=== PATIENT | male | born 1940 | race Caucasian/White ===

== ENCOUNTER 2017-05-16 01:30 | Outpatient (CLI) | payer MEDICARE, BC | END 2017-05-16 01:31 | disposition home or self-care (01) | LOC: BICCT 01:30 | PROVIDERS: ATTEND Psychiatry & Neurology Neurology | DX: R26.9 Unspecified abnormalities of gait and mobility (principal); M47.816 Spondylosis without myelopathy or radiculopathy, lumbar region; G93.89 Other specified disorders of brain | CPT/HCPCS: 70450; 72131 ==

== ENCOUNTER 2018-01-11 17:14 | Inpatient (IN) | payer MEDICARE, BC ==
[~2018-01-11 17:14] MED LIST: ISOVUE-370 76%-LOCM 1 ML ONE
[2018-01-11 17:38] LABS: Hemoglobin 13.4 g/dL (14.0-18.0); Mean Corpuscular Hemoglobin 31.6 pg (27.0-31.0); Platelet Count 231 thou/uL (130-400); Red Blood Cell (RBC) Count 4.23 mill/uL (4.70-6.10); White Blood Cell (WBC) Count 21.6 thou/uL (4.8-10.8)
[2018-01-11 17:45] LABS: Prothrombin Time 13.9 SEC (12.0-14.7)
[2018-01-11 17:46] LABS: INR-International Normal Ratio 1.1; PTT 70.5 SEC (22.9-36.1)
[2018-01-11 17:48] LABS: Calcium 9.6 mg/dL (7.8-10.44)
[2018-01-11 17:50] LABS: Acetaminophen Less than 6.0 mcg/mL (10.0-30.0); Alcohol Less than 10 mg/dL (Less than 10); Salicylate Less than 8.0 mg/dL (15.0-30.0)
[2018-01-11 17:51] LABS: Band 17 % (5-11); Eosinophils 1 % (0-10); Lymphocytes 4 % (21-51); MDiff Complete? YES; Monocytes 4 % (0-10); Neutrophil 74 % (42-75); PLT Morphology Comment Appears Adequate; RBC Morphology Normal
[2018-01-11 17:54] LABS: CKMB 3.9 ng/mL (0-6.6); Troponin I Less than 0.010 ng/mL (< 0.028)
[2018-01-11] MEDS ORDERED: Ondansetron HCl/PF 4 MG/2 ML Vial ONE (17:55)
[2018-01-11] MEDS ORDERED: Sodium Bicarb 50 MEQ/50 ML Abboject 8.4% SYRINGE ONE (18:07)
[2018-01-11] MEDS ORDERED: Dextrose 50% Abboject 50 ML SYRINGE ONE (18:07)
[2018-01-11] MEDS ORDERED: Insulin Regular 300 UNITS/3 ML VIAL ONE (18:07)
[2018-01-11] MEDS ORDERED: Calcium Chloride 1 GM/10 ML Abboject SYRINGE ONE (18:07)
[2018-01-11] MEDS ORDERED: Albuterol Sulfate 2.5 mg/3 ml Neb ONE (18:14)
[2018-01-11 18:30] LABS: Base Excess-Venous -5.1 mmol/L (0 (+/- 2.5)); Bicarbonate (HCO3v) 19.7 mmol/L (1.0-85.0); CO2 Tension (PvCO2) 34.9 mmHg (41.0-51.0); Calcium, Ionized 1.07 mmol/L (1.12-1.32); Hemoglobin - Calc 11.2 g/dL (12.0-18.0); O2 Tension (PvO2) 43.2 mmHg (35.0-45.0); T. Carbon Dioxide 20.8 mmol/L (1.0-85.0); pH (Venous) 7.359 (7.35-7.45); vO2 Saturation-calc 77.4 % (94-98)
--- NOTE | 2018-01-11 18:32 | CT ---
CT BRAIN 01/11/18 HISTORY: Stroke alert. Slurred speech. Fall. Vomiting. Noncontrast enhanced CT images of the brain is obtained from base of the skull through the vertex. Br ain and bone windows obtained. CT images demonstrate a previous right sided pterional craniotomy with a right MCA aneurysm clip in p vy. The patient has had previous old right posterior frontal area of encephalomalacia compatible with rig ht MCA distribution area of infarction. No evidence of acute intracranial masses, hemorrhages, or strokes seen. IMPRESSION: Old areas of stroke with encephalomalacic changes seen. Findings called to Dr. Pascual at 5:26 p.m. on 01/11/18. Code CR POS: [facility]
[2018-01-11 18:43] LABS: Anion Gap 14 mmol/L (10-20); Calc. Creatinine Clearance 0 mL/min (70-130); Carbon Dioxide 25 mmol/L (23-31); Chloride 96 mmol/L (98-107); Estimated GFR-MDRD 42; Potassium 4.1 mmol/L (3.5-5.1); Sodium 131 mmol/L (136-145)
[2018-01-11 18:44] LABS: Bilirubin, Total 0.3 mg/dL (0.2-1.2); Glucose 139 mg/dL (83-110)
[2018-01-11 18:45] LABS: Albumin 4.5 g/dL (3.4-4.8); Globulin 3.5 g/dL (2.4-3.5)
[2018-01-11 18:46] LABS: ALT (SGPT) 18 U/L (8-55); AST (SGOT) 22 U/L (5-34); Alkaline Phosphatase 83 U/L (40-150); BUN (Urea Nitrogen) 24 mg/dL (8.4-25.7); Lipase 39 U/L (8-78)
[2018-01-11 19:09] LABS: Bilirubin Negative (Negative); Blood, Urine Small (Negative); Clarity CLEAR (Clear); Glucose, Urine (Dipstick) Negative (Negative); Leukocyte Negative (Negative); Nitrite Negative (Negative); Protein, Urine (Dipstick) 100 mg/dL (Neg-Trace); Specific Gravity, Urine 1.024 (1.002-1.036); Urobilinogen 0.2 mg/dL (0.2-1.0); pH, Urine 6.5 (5.0-9.0)
[2018-01-11 19:12] LABS: Bacteria/HPF None Seen HPF (None Seen); Hyaline Casts/LPF 0-3 HYALINE CAST LPF (0-3 Hyaline); Pathc Cast-AUWi Flag 0.14 (0-2.49); Squamous Epithelial None Seen HPF (0-3); WBC/HPF None Seen HPF (0-3)
[2018-01-11 19:19] LABS: Amphetamine Not Detected (NotDetected); Barbiturates Screen Not Detected (NotDetected); Benzodiazepine Screen Detected (NotDetected); Cocaine Metabolite Screen Not Detected (NotDetected); Medtox Control Line Valid? VALID (VALID); Medtox Reader # READER 1; Methadone Not Detected (NotDetected); Methamphetamine Not Detected (NotDetected); Opiate Screen Not Detected (NotDetected); Oxycodone Screen Not Detected (NotDetected); Phencyclidine (PCP) Not Detected (NotDetected); THC/Cannabinoid Screen Detected (NotDetected); Tricyclic Screen Not Detected (NotDetected)
--- NOTE | 2018-01-11 19:40 | CT ---
CTA CAROTID ARTERIES: 01/11/18 HISTORY: Stroke. History of fall. Slurred speech. Contrast enhanced CTA of the carotid and intracranial arteries obtained using a 3D workstation. 2D an d 3D reconstructed images performed. Images demonstrate some calcification seen in the aortic arch. The right brachiocephalic artery is ec tatic. The right common carotid artery is patent. Atherosclerotic plaque seen in the distal aspect of the right CCA extending to the right ICA resulting in approximately 20% distal right CCA and proxima l right ICA stenosis. More distally, the right ICA is patent. there are areas of calcified plaque in the right M1 segment of the middle cerebral artery proximal to the area of aneurysmal clipping. Flow is seen into the M2 and M3 segments of the right MCA. The right and left anterior cerebral arteries are patent. LEFT CAROTID: The left common carotid artery is patent. Atherosclerotic seen in the distal left CCA extending to th e left ICA resulting in some moderate proximal left ICA stenosis. More distally, the left ICA is chávez nt. The left MCA is also patent. There is occlusion of the distal left vertebral artery. The right vertebral artery is patent. Flow is seen in the basilar artery which does provide flow to the right and left posterior cerebral vessels. IMPRESSION: 1. No evidence of definite acute intracranial occlusion seen. 2. There is occlusion of the mid to distal left vertebral artery. The edge of this is indetermin ate. 3. Surgical changes in the right MCA vessels with atherosclerotic plaques in the proximal right MCA artery. POS: [facility]
--- NOTE | 2018-01-11 20:52 | RAD ---
ONE VIEW CHEST: 01/11/18 HISTORY: Altered mental status. Fall. AP view chest is obtained on 01/11/18. Comparison made to previous exam from 06/17/14. AP view chest demonstrates some cardiomegaly. Ectasia of the aorta is seen. There is some elevation of the right hemidiaphragm. There appears to be some gas beneath the right hemidiaphragm. This may represent a portion of the hep atic flexure in this region; however, free air beneath the right hemidiaphragm cannot be completely e xcluded. Correlate with clinical exam. Bilateral shoulder degenerative changes seen. IMPRESSION: Area of gas density beneath the right hemidiaphragm. This may represent gas within the colonic flexur e versus may represent free air or rupture of the hollow viscus. POS: [facility]
[2018-01-11] MEDS ORDERED: Aspirin 300 MG Suppository ONE (21:10)
[2018-01-11] MEDS ORDERED: Ondansetron HCl/PF 4 MG/2 ML Vial IVP PRN (22:09)
[2018-01-11] MEDS ORDERED: Acetaminophen 325 MG TAB PO PRN (22:09)
[2018-01-11] MEDS ORDERED: Ondansetron ODT 4 MG TAB SL PRN (22:09)
[2018-01-12] MEDS ORDERED: hydrALAZINE 20 MG/ML VIAL SLOW IVP PRN (00:59)
[2018-01-12] MEDS ORDERED: Potassium Chloride 10 MEQ/100 ML PREMIX BAG IVPB SCH (01:30)
[2018-01-12] MEDS ORDERED: Piperacillin/Tazobactam 3.375 GM in Sodium Chloride 0.9% 100 ML IVPB SCH (01:30)
[2018-01-12 01:32] VITALS: BMI 30.2
--- NOTE | 2018-01-12 02:15 | HP ---
CHIEF COMPLAINT: Weak and dizzy. HISTORY OF PRESENT ILLNESS: This is a 77-year-old male with past medical history of hemophilia B, hy perlipidemia, hypertension, presenting with a new onset of right-sided weakness and facial droop. Hi story was obtained from patient and patient's family. The patient's was at work and she came ho me around 1630 hours and when she came home, she found the patient on the floor and when I spoke to t he patient, per the patient, he was on the floor for about 2 hours prior to the coming in to the house. At that time, noted the patient has slurred speech and right-sided weakness which is ne w. Therefore, patient called EMS. Per the , the patient does not have these symptoms of slurred speech and weakness. In patient's baseline, patient is able to communicate, and patient is able to do activities of daily living by himself. Per the , the patient did not have any fevers, nausea, and vomiting that was noted at that time. REVIEW OF SYSTEMS: Positive for right-sided weakness and drooping of the face, otherwise as document ed in the HPI, all other systems were reviewed and were negative. PAST MEDICAL HISTORY: The patient has hemophilia B, hyperlipidemia, hypertension. 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 The mali ent also had an aneurysm clip on right cerebral artery. Patient also had a foot surgery in the past. FAMILY HISTORY: Reviewed and noncontributory towards this visit. PSYCHIATRIC HISTORY: No previous psychiatric history. SOCIAL HISTORY: Patient drinks every day, less than 5 drinks per day. Patient actually is a former tobacco user and smokes cigarettes. Patient also drinks a glass of wine nightly. Patient does not u se any illicit drugs. ALLERGIES: No known drug allergies. CURRENT MEDICATIONS: The patient is on carbamazepine, Cardura, hydrochlorothiazide, lisinopril. PHYSICAL EXAMINATION: VITAL SIGNS: Blood pressure 185/86, pulse 65, respiratory rate of 14, temperature of 97.9, O2 sat of 96. IMAGING: EKG showed junctional rhythm, prolonged QT. CTA showed occlusion of mild distal left verte bral artery. ED COURSE: The patient was given aspirin, normal saline, sodium bicarbonate IV, Novolin R, dextrose 50%, albuterol sulfate, Zofran. LABORATORY DATA: WBC 21.6, hemoglobin 13.4, hematocrit 39.3, platelet count is 231,000. PT 13.9, IN R 1.1, PTT 70.5. ABGs, pH 7.3, pCO2 is 34.9, pO2 is 43.2. Sodium 131, potassium 3.0, chloride of 96 , anion gap of 14, creatinine 1.62, BUN 24, glucose 139, calcium 9.6. Urinalysis negative for trace leukoesterase, negative for nitrites. Toxicology: Salicylate is less than 8.0, acetaminophen less t miller 6.0, benzodiazepines detected, cannabinoids also detected. ASSESSMENT AND PLAN: 1. This is a 77-year-old male being admitted for left-sided weakness and facial droop, likely due to stroke. At this point, a CTA of the neck shows that there is some vertebral artery occlusion ordere d for MRI of the head. We will follow up with this. We have consulted Neurology. We started the pa grzegorz on aspirin, atorvastatin. We will give the patient IV hydration and we will re-examine the pat ient's creatinine in the morning. If the patient's creatinine starts to resolve, we can do MRA of th e head. 2. Hypertension. We will give patient's blood pressure medication as needed and will control blood pressure. We will monitor the patient's blood pressure closely. 3. Hyperlipidemia. Continue patient on atorvastatin. 4. Hemophilia B. At this point, the patient does not have any spontaneous bleeding. We will contin ue the patient on aspirin since patient has a stroke and this risk of aspirin to prevent further stro ke is beneficial at this time, so we will continue this medication. 5. Gastrointestinal and deep venous thrombosis prophylaxis. We will do Lovenox for deep venous thro mbosis prophylaxis. The patient is currently n.p.o. We will do Pepcid for gastrointestinal prophyla xis. 6. Hypokalemia. We will replete patient's potassium and we will get morning magnesium.
[2018-01-12 05:52] LABS: Cardiac Risk 6.7 (Less than 4.5); Magnesium 2.1 mg/dL (1.6-2.6)
[2018-01-12] MEDS ORDERED: Acetaminophen 650 MG Suppository PR PRN (09:22)
[2018-01-12] MEDS ORDERED: Ondansetron HCl/PF 4 MG/2 ML Vial IVP PRN (09:22)
[2018-01-12] MEDS ORDERED: Fleet Enema 133 ML BOT PR PRN (09:22)
[2018-01-12] MEDS ORDERED: Bisacodyl 10 MG SUPP PR PRN (09:22)
[2018-01-12] MEDS ORDERED: Artificial Tears 18 DROP/0.9 ML EA EYE PRN (09:22)
[2018-01-12] MEDS ORDERED: Eucerin (Mineral Oil/Petrolatum,White) 30 gm Jar TOP PRN (09:22)
[2018-01-12] MEDS ORDERED: Sodium Chloride 0.65% Nasal 44 ML BOT EA NARE PRN (09:22)
[2018-01-12] MEDS: Aspirin 81 mg Enteric Coated Tablet PO SCH (10:08)
--- NOTE | 2018-01-12 10:12 | PDOC.EVN ---
Event Note - Event Note Event Note: i have seen this pt at 7 am and after shane rodriguez, based on my assessment i am not seeing any change since morning but per family pt is worse since his ER visit, current NIH score 26, yesterday 9, will get CT brain. I spoke with neurology Dr Greer and history given and test result so far discussed, per him he is not a candidate for any kind of acute intervention and wanted to keep SBP around 160, will transfer to CCU and start cardene drip. I discussed with family.
--- NOTE | 2018-01-12 10:20 | RAD ---
ABDOMEN 2 VIEWS WITH 1 VIEW CHEST XRAY: HISTORY: Free air suspected. COMPARISON: Radiograph from prior day. FINDINGS: Lungs are hypoinflated with vascular crowding. There is likely interposition of bowel extending into the right hemidiaphragm and right lobe of the liver. No free air is seen on the antecubitus views. No dilated air-filled loops of large or small bowel. Moderate stool burden. Moderate vascular calci fications. Moderate dextroscoliosis. IMPRESSION: 1. Lung hypoinflation and vascular crowding. 2. No free air is seen on the decubitus views. 3. Moderate stool burden. 4. No evidence of bowel obstruction. POS: [facility]
--- NOTE | 2018-01-12 10:50 | PDOC.PN ---
- Subjective Encounter Start Date: 01/12/18 Encounter Start Time: 10:00 -: old records requested/rev i have seen this pt at 7 am and again code jennifer was called at that time i show , per family pt has decline in neuro status since they arrived to ER, pt's BP remains high, he is arousable but aphasic, bedside - Objective Resuscitation Status: Resuscitation Status DNR:Do Not Resuscitate MAR Reviewed: Yes Vital Signs & Weight: Vital Signs (12 hours) Temp Pulse Resp BP BP Pulse Ox 01/12/18 07:00 99.2 F 53 L 16 200/90 H 94 L 01/12/18 04:49 60 201/90 H 01/12/18 03:44 99.5 F 60 16 201/90 H 98 Weight Weight 159 lb 11.2 oz Result Diagrams: 01/11/18 17:30 01/11/18 17:30 Additional Labs: Accuchecks 01/12/18 01/11/18 09:56 17:18 POC Glucose 121 H 153 H Radiology Reviewed by me: Yes (CTA , CT brain noted and reviwed) EKG Reviewed by me: Yes (nsr) Phys Exam - Physical Examination Constitutional: NAD HEENT: PERRLA, sclera anicteric dry MM Neck: no JVD, supple Respiratory: no wheezing, no rales, no rhonchi Cardiovascular: RRR, no significant murmur, no rub Gastrointestinal: soft, non-tender, no distention, positive bowel sounds no peritoneal sign Musculoskeletal: no edema, pulses present left side UE contracture right side flaccid paraplegia, fascial drooping and aphasia Psychiatric: normal affect Skin: no rash, normal turgor Dx/Plan (1) CVA (cerebral vascular accident) Code(s): I63.9 - CEREBRAL INFARCTION, UNSPECIFIED Status: Acute Qualifiers: CVA mechanism: thrombosis Precerebral and cerebral artery: middle cerebral artery Laterality of affected vessel: left Qualified Code(s): I63.312 - Cerebral infarction due to thrombosis of left middle cerebral artery (2) Encephalopathy acute Code(s): G93.40 - ENCEPHALOPATHY, UNSPECIFIED Status: Acute (3) Hypertensive urgency Code(s): I16.0 - HYPERTENSIVE URGENCY Status: Acute (4) Acute kidney failure Status: Acute (5) BPH (benign prostatic hyperplasia) Code(s): N40.0 - BENIGN PROSTATIC HYPERPLASIA WITHOUT LOWER URINRY TRACT SYMP Status: Chronic (6) Bandemia Code(s): D72.825 - BANDEMIA Status: Acute (7) Cannabis abuse Code(s): F12.10 - CANNABIS ABUSE, UNCOMPLICATED Status: Chronic (8) Hypokalemia Code(s): E87.6 - HYPOKALEMIA Status: Acute (9) Dyslipidemia Code(s): E78.5 - HYPERLIPIDEMIA, UNSPECIFIED Status: Chronic (10) H/O arteriovenous malformation (AVM) Code(s): Z87.74 - PERSONAL HISTORY OF CONGENITAL MALFORM OF HEART AND CIRC SYS Status: Chronic (11) H/O: CVA (cerebrovascular accident) Code(s): Z86.73 - PRSNL HX OF TIA (TIA), AND CEREB INFRC W/O RESID DEFICITS Status: Chronic Comment: with chronic left side weakness (12) Hemophilia B Status: Chronic (13) Hypertension Code(s): I10 - ESSENTIAL (PRIMARY) HYPERTENSION Status: Chronic (14) Obesity (BMI 30.0-34.9) Code(s): E66.9 - OBESITY, UNSPECIFIED Status: Chronic - Plan cont current plan of care, plan discussed w/ family, continue antibiotics, PT/OT , social media senior associate, speech therapy * i spoke with regarding code status and confirmed that she wanted to keep him DNR based on pt wish especially currently as pt's condition is worsening and wanted to leave as DNR for now, but if he improves then she will decide to change if needed * continue cardene drip * transfer to ccu * neurology notified * pt is not a candidate for any kind of acute intervention per neurology * prognosis is guarded * will need eventual peg * may need snu vs rehab based on clinical progress * CT brain reviewed repeat one * medication reviewed as below * symptomatic treatment * discussed with family multiple times. Review of Systems - Review of Systems Other: unable to review due to aphasia and change in mental status - Medications/Allergies Allergies/Adverse Reactions: Allergies Allergy/AdvReac Type Severity Reaction Status Date / Time No Known Allergies Allergy Verified 01/12/18 03:09 Medications: Current Medications Acetaminophen (Tylenol) 650 mg ND Q4H PRN PRN Reason: Headache/Fever or Mild Pain Artificial Tears (Tears Naturale) 0 drop EA EYE PRN PRN PRN Reason: Dry Eyes Aspirin (Ecotrin) 81 mg PO DAILY [facility] Last Admin: 01/12/18 10:08 Dose: Not Given Atorvastatin Calcium (Lipitor) 80 mg PO HS [facility] Bisacodyl (Dulcolax) 10 mg ND DAILYPRN PRN PRN Reason: Constipation Enoxaparin Sodium (Lovenox) 30 mg SC 0900 [facility] Famotidine (Pepcid) 20 mg SLOW IVP 2100 [facility] Hydralazine HCl (Apresoline) 10 mg SLOW IVP Q2H PRN PRN Reason: BP > 180 Piperacillin Sod/Tazobactam (Sod 2.25 gm/ Sodium Chloride) 100 mls @ 200 mls/ hr IVPB 0200,0800,1400,2000 [facility] Sodium Chloride (Normal Saline 0.9%) 1,000 mls @ 50 mls/hr IV .Q20H [facility] Nicardipine HCl 25 mg/ Sodium (Chloride) 260 mls @ 0 mls/hr IVPB INF [facility]; Protocol Labetalol HCl (Normodyne) 20 mg SLOW IVP Q1H PRN PRN Reason: BP > 220/110 Mineral Oil/White Petrolatum (Eucerin Cream) 0 gm TOP BIDPRN PRN PRN Reason: Dry Skin Miscellaneous Medication (Pharmacy To Dose) 1 each IVPB PRN PRN PRN Reason: Pharmacy to dose Ondansetron HCl (Zofran) 4 mg IVP Q6H PRN PRN Reason: Nausea/Vomiting Sodium Biphosphate/Sodium Phosphate (Fleet Enema) 133 ml ND ONE PRN PRN Reason: Constipation Stop: 01/17/18 09:23 Sodium Chloride (Flush - Normal Saline) 10 ml IVF Q12HR [facility] Sodium Chloride (Flush - Normal Saline) 10 ml IVF PRN PRN PRN Reason: Saline Flush Sodium Chloride ([place] Nasal [place] 0.65%) 0 ml EA NARE QIDPRN PRN PRN Reason: Nasal Congestion
[2018-01-12 10:55] LABS: #Lymphocytes 1.3 thou/uL (1.20-3.40); #Monocytes 0.9 thou/uL (0.11-0.59); #Neutrophils 12.4 thou/uL (1.40-6.50); %Basophils 0.2 % (0.0-1.0); %Eosinophils 0.1 % (0.0-10.0); %Lymphocytes 8.7 % (21.0-51.0); Hemoglobin 13.7 g/dL (14.0-18.0); Mean Corpuscular HGB CONC 32.9 g/dL (32.0-36.0); Mean Corpuscular Hemoglobin 31.5 pg (27.0-31.0); Mean Corpuscular Volume 95.7 fL (78.0-98.0); Mean Platelet Volume 7.2 fL (7.4-10.4); Platelet Count 219 thou/uL (130-400); RBC Distribution Width 12.2 % (11.5-14.5); Red Blood Cell (RBC) Count 4.34 mill/uL (4.70-6.10); White Blood Cell (WBC) Count 14.6 thou/uL (4.8-10.8)
[2018-01-12] MEDS: Piperacillin/Tazobactam 2.25 GM in Sodium Chloride 0.9% 100 ML IVPB SCH ×3 (11:25→20:04)
--- NOTE | 2018-01-12 11:28 | CON ---
DATE OF CONSULTATION: 01/12/2018 REASON FOR CONSULTATION: Possible free air. HISTORY: Mr. Dinh is a 77-year-old man who was found down at 4:30 yesterday by his with trev re right-sided weakness and right facial droop. She brought him immediately to the emergency room by EMS and he was admitted to the Stroke Unit. Since that time, he had become less aware, having more trouble focusing and weaker on the right side. According to the , it looked like he had walked a cross the house, thrown up in the hallway and then collapsed in the bathroom. He has not been compla ining of any abdominal pain or problems prior to his admission and when I asked him if he was having abdominal pain, he said "no", but then later he would not respond to questioning. 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 PAST SURGICAL HISTORY: Brain surgery for AVM repair and clipping of the aneurysm and bunion surgery. ALLERGIES: He has no known drug allergies. OUTPATIENT MEDICATIONS: Include amlodipine, bisoprolol/hydrochlorothiazide, Tegretol, Celebrex, Card ura, finasteride and econazole nitrate cream. INPATIENT MEDICATIONS: Aspirin, atorvastatin, Lovenox, hydralazine p.r.n., Zosyn and labetalol p.r.n . PHYSICAL EXAMINATION: VITAL SIGNS: Temperature 99.2, heart rate 53, blood pressure 200/90, respirations 16, 94% saturated on room air. GENERAL: Reveals an elderly man in no acute distress. HEENT: Unremarkable. He is intermittently responsive and able to make eye contact and responds to q uestioning, but then looks confused and does not respond. He does have some facial asymmetry and era e slight drooling and occasional gurgling upper respiratory sounds, although he is able to take a tamiko p breath on command. LUNGS: He has diminished breath sounds in the right base compared to the left, but is clear to auscu ltation. ABDOMEN: Soft, nontender and nondistended. He does not exhibit any grimacing or signs of pain with deep palpation and release of pressure. No palpable hernias or masses. EXTREMITIES: Warm and well perfused with normal pulses. His right arm is flaccid and he does not sq ueeze with either arm to command. He intermittently tracks with his eyes and does not appear to have any abnormal eye movements. Sensory exam was unable to be performed and he was not following comman ds at the time of my exam. LABORATORY DATA: White count is elevated at 21 on admission, hematocrit 39, platelets 231. INR 1.1 and PTT 70 on admission. BUN and creatinine 24 and 1.62. Other electrolytes are unremarkable. Trig lycerides and cholesterol were elevated. Urine drug screen positive for benzodiazepines and cannabin oids. CT of the brain showed some old areas of stroke as well as the surgical changes and a CT angio showed occlusion of the mid to distal left vertebral artery of indeterminate age and postoperative changes. Chest x-ray in the emergency room did not show any obvious infiltrates. The right hemidiaphragm heath d some areas of gas density beneath it, which could represent gas in the colonic flexure versus free air, but an acute abdominal series performed this morning did not show any evidence of free air. ASSESSMENT: Possible free air on admission chest x-ray, but no evidence of peritonitis on exam and n o evidence of free air on followup acute abdominal exam. No surgical intervention indicated at this time and I do not think that any further imaging is indicated either. I will check on him again late r today. Of more concern is his worsening neurologic status with increasing confusion and weakness.
[2018-01-12 11:29] LABS: CKMB 6.3 ng/mL (0-6.6); Troponin I 0.031 ng/mL (< 0.028)
[2018-01-12] MEDS: Sodium Chloride 0.9% 1,000 ML IV SCH (11:57)
[2018-01-12 12:02] LABS: ALT (SGPT) 18 U/L (8-55); AST (SGOT) 42 U/L (5-34); Albumin 4.2 g/dL (3.4-4.8); Alkaline Phosphatase 81 U/L (40-150); Anion Gap 17 mmol/L (10-20); BUN (Urea Nitrogen) 22 mg/dL (8.4-25.7); Bilirubin, Total 0.5 mg/dL (0.2-1.2); Calc. Creatinine Clearance 36 mL/min (70-130); Calcium 9.7 mg/dL (7.8-10.44); Carbon Dioxide 22 mmol/L (23-31); Chloride 104 mmol/L (98-107); Estimated GFR-MDRD 38; Globulin 3.6 g/dL (2.4-3.5); Glucose 109 mg/dL (83-110); Potassium 4.1 mmol/L (3.5-5.1); Protein, Total 7.8 g/dL (5.8-8.1); Sodium 139 mmol/L (136-145)
[2018-01-12] MEDS: Enoxaparin Sodium 30 MG/0.3 ML SYRINGE SC SCH (12:08)
--- NOTE | 2018-01-12 12:11 | CT ---
NONCONTRAST ENHANCED CT BRAIN: 01/12/2018 COMPARISON: 01/11/2018 FINDINGS: CT brain demonstrates right craniotomy changes seen. Surgical clips are seen in the right MCA region . There is interval development of an area of hypodensity in the left occipital region. This area appe ars to have developed since the previous exam and is concerning for a left posterior cerebral distrib ution area of stroke. No associated hemorrhage is seen. The rest of the brain is unchanged. IMPRESSION: Findings concerning for a developing left occipital stroke. POS: [facility]
--- NOTE | 2018-01-12 12:15 | CON ---
DATE OF CONSULTATION: 01/12/2018 HISTORY OF PRESENT ILLNESS: This is a 77-year-old gentleman who was apparently in good health until the day of his admission when he presented to the ER at 2000 hours with symptoms of weakness. His w mike is at the bedside along with his son who states that this morning, the patient was found down wit h drooping on the right side. He did vomit. His speech was slurred. 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 A CT of his head done on an emergency basis initially showed areas of old stroke and encephalomalacia on the right posterior frontal area. He had a CT angio done shortly thereafter that showed no evidence of acute intracranial occlusion. T here was occluded mid to distal left vertebral cerebral artery and surgical changes in the right MCA area. To note, he has had a previous craniotomy done in the past. He has previous history is outlined. PAST MEDICAL HISTORY: Pertinent for previous hypertension, high cholesterol, hemophilia, apparently sleep apnea, previous seizure disorders. MEDICATIONS: Include amlodipine 10, bisoprolol twice a day, Doxazocin 4 mg, Tegretol 600 twice a day . PAST SURGICAL HISTORY: Surgery for an AVM and an aneurysm done almost 27 years ago in [place], previ ous colonoscopy. SOCIAL HISTORY: Professor at &. FAMILY HISTORY: Family history otherwise unremarkable. ALLERGIES: None. ALCOHOL: Minimal. TOBACCO: None, former smoker years ago. PHYSICAL EXAMINATION: GENERAL: He is aphasic, right-sided facial paralysis. VITAL SIGNS: Blood pressure 219/98, pulse 48, temperature 99. CHEST: Chest reveals decreased breath sounds, no wheezing. CARDIAC: Normal S1, S2, no gallops. ABDOMEN: Soft, no masses. LABORATORY AND X-RAY FINDINGS: His triglycerides 270. Cholesterol was 287. He has cannabinoids in his urine. IMPRESSION: 1. Acute cerebrovascular accident with right-sided paralysis. 2. Previous craniotomy for a right-sided AVM and an aneurysm. 3. Hypertension. 4. High cholesterol. 5. Hypertriglyceridemia. 6. History of seizure disorders. PLAN: At this stage, aspirin recommended. Try and get his blood pressure to a baseline level. Eventually supportive care and PT, speech therapy. This is an ICU consultation note. Forty-five minutes critical care time. I will follow.
[2018-01-12] MEDS ORDERED: Mannitol 12.5 GM/50 ML SLOW IVP SCH (18:30)
--- NOTE | 2018-01-12 19:12 | CT ---
CT OF BRAIN PERFORMED WITHOUT CONTRAST ENHANCEMENT: 01/12/18 HISTORY: CVA. Altered mental status. The ventricular and cisternal system shows generalized atrophy. A right frontal craniotomy is noted. There is an aneurysm clip in the right middle cerebral artery region. There is an area of decreased a ttenuation in the left occipital lobe. This is very suspicious for an acute to subacute infarct. I do not see any signs of hemorrhage associated with this. Calcification associated at the anterior vickie n of the right thalamus is a stable finding. There is encephalomalacia change in the right middle cer ebral artery territory similar to the prior exam. This appears chronic. IMPRESSION: Stable exam. Findings would suggest an acute to subacute left occipital infarct. POS: [facility]
[2018-01-12] MEDS: Atorvastatin Calcium 40 MG TAB PO SCH (20:04)
[2018-01-12] MEDS: Famotidine/PF 20 mg/2ml Vial SLOW IVP SCH (20:04)
[2018-01-13] MEDS: Piperacillin/Tazobactam 2.25 GM in Sodium Chloride 0.9% 100 ML IVPB SCH ×4 (01:12→20:13)
[2018-01-13 04:07] LABS: ALT (SGPT) 19 U/L (8-55); AST (SGOT) 40 U/L (5-34); Albumin 4.3 g/dL (3.4-4.8); Alkaline Phosphatase 75 U/L (40-150); Anion Gap 16 mmol/L (10-20); BUN (Urea Nitrogen) 23 mg/dL (8.4-25.7); Bilirubin, Total 0.7 mg/dL (0.2-1.2); Calc. Creatinine Clearance 36 mL/min (70-130); Calcium 9.6 mg/dL (7.8-10.44); Carbon Dioxide 23 mmol/L (23-31); Chloride 106 mmol/L (98-107); Estimated GFR-MDRD 37; Globulin 3.2 g/dL (2.4-3.5); Glucose 120 mg/dL (83-110); Potassium 3.2 mmol/L (3.5-5.1); Protein, Total 7.5 g/dL (5.8-8.1); Sodium 142 mmol/L (136-145)
[2018-01-13 04:10] LABS: #Lymphocytes 1.2 thou/uL (1.20-3.40); #Neutrophils 11.8 thou/uL (1.40-6.50); %Basophils 0.1 % (0.0-1.0); %Eosinophils 0.2 % (0.0-10.0); %Lymphocytes 8.6 % (21.0-51.0); %Monocytes 6.8 % (0.0-10.0); %Neutrophils 84.3 % (42.0-75.0); Mean Corpuscular HGB CONC 33.4 g/dL (32.0-36.0); Mean Corpuscular Hemoglobin 31.7 pg (27.0-31.0); Mean Corpuscular Volume 94.7 fL (78.0-98.0); Mean Platelet Volume 7.4 fL (7.4-10.4); Platelet Count 218 thou/uL (130-400); RBC Distribution Width 12.3 % (11.5-14.5); Red Blood Cell (RBC) Count 4.09 mill/uL (4.70-6.10)
[2018-01-13] MEDS: hydrALAZINE 20 MG/ML VIAL SLOW IVP PRN ×3 (05:03→10:55)
[2018-01-13] MEDS: Sodium Chloride 0.9% 1,000 ML IV SCH (05:04)
[2018-01-13 05:53] LABS: Syphilis Antibody Nonreactive (Nonreactive); Syphilis Antibody Index 0.06 S/CO (<1.00 Non-Reactive)
[2018-01-13] MEDS: Aspirin 81 mg Enteric Coated Tablet PO SCH (09:22)
[2018-01-13] MEDS: Enoxaparin Sodium 30 MG/0.3 ML SYRINGE SC SCH (09:22)
--- NOTE | 2018-01-13 10:18 | PDOC.PN ---
- Subjective Encounter Start Date: 01/13/18 Encounter Start Time: 09:30 Patient seen and examined. cardene drip was discontinued, pt requires suctioning , no improvement No overnight events - Objective Resuscitation Status: Resuscitation Status DNR:Do Not Resuscitate MAR Reviewed: Yes Vital Signs & Weight: Vital Signs (12 hours) Temp Pulse BP Pulse Ox 01/13/18 08:00 99 01/13/18 07:47 53 L 183/76 H 01/13/18 07:00 98.1 F 01/13/18 05:03 53 L 183/76 H 01/13/18 04:00 99.7 F H 01/13/18 00:00 99.3 F 97 Weight Weight 159 lb 11.2 oz Most Recent Monitor Data Heart Rate from ECG 57 NIBP 173/71 NIBP BP-Mean 105 Respiration from ECG 22 SpO2 99 I&O: 01/12/18 01/13/18 01/14/18 06:59 06:59 06:59 Intake Total 1918 100 Output Total 2740 210 Balance -822 -110 Result Diagrams: 01/13/18 03:26 01/13/18 03:26 Radiology Reviewed by me: Yes (CT brain) EKG Reviewed by me: Yes (nsr) Phys Exam - Physical Examination Constitutional: NAD HEENT: PERRLA, sclera anicteric dry MM Neck: no JVD, supple coarse sound+ Cardiovascular: RRR, no significant murmur, no rub Gastrointestinal: soft, no distention, positive bowel sounds Musculoskeletal: no edema, pulses present unable to assess Lymphatic: no nodes Deviation from normal: unable to assess Skin: no rash, normal turgor Dx/Plan (1) CVA (cerebral vascular accident) Code(s): I63.9 - CEREBRAL INFARCTION, UNSPECIFIED Status: Acute Qualifiers: CVA mechanism: thrombosis Precerebral and cerebral artery: middle cerebral artery Laterality of affected vessel: left Qualified Code(s): I63.312 - Cerebral infarction due to thrombosis of left middle cerebral artery (2) Encephalopathy acute Code(s): G93.40 - ENCEPHALOPATHY, UNSPECIFIED Status: Acute (3) Hypertensive urgency Code(s): I16.0 - HYPERTENSIVE URGENCY Status: Acute (4) Acute kidney failure Status: Acute (5) BPH (benign prostatic hyperplasia) Code(s): N40.0 - BENIGN PROSTATIC HYPERPLASIA WITHOUT LOWER URINRY TRACT SYMP Status: Chronic (6) Bandemia Code(s): D72.825 - BANDEMIA Status: Acute (7) Cannabis abuse Code(s): F12.10 - CANNABIS ABUSE, UNCOMPLICATED Status: Chronic (8) Hypokalemia Code(s): E87.6 - HYPOKALEMIA Status: Acute (9) Dyslipidemia Code(s): E78.5 - HYPERLIPIDEMIA, UNSPECIFIED Status: Chronic (10) H/O arteriovenous malformation (AVM) Code(s): Z87.74 - PERSONAL HISTORY OF CONGENITAL MALFORM OF HEART AND CIRC SYS Status: Chronic (11) H/O: CVA (cerebrovascular accident) Code(s): Z86.73 - PRSNL HX OF TIA (TIA), AND CEREB INFRC W/O RESID DEFICITS Status: Chronic Comment: with chronic left side weakness (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 * continue zosyn * continue IVF with potassium Review of Systems - Review of Systems Other: unable to review due to AMS - Medications/Allergies Allergies/Adverse Reactions: Allergies Allergy/AdvReac Type Severity Reaction Status Date / Time No Known Allergies Allergy Verified 01/12/18 03:09 Medications: Current Medications Acetaminophen (Tylenol) 650 mg MA Q4H PRN PRN Reason: Headache/Fever or Mild Pain Artificial Tears (Tears Naturale) 0 drop EA EYE PRN PRN PRN Reason: Dry Eyes Aspirin (Ecotrin) 81 mg PO DAILY [facility] Last Admin: 01/13/18 09:22 Dose: Not Given Atorvastatin Calcium (Lipitor) 80 mg PO HS [facility] Last Admin: 01/12/18 20:04 Dose: Not Given Bisacodyl (Dulcolax) 10 mg MA DAILYPRN PRN PRN Reason: Constipation Enoxaparin Sodium (Lovenox) 30 mg SC 0900 [facility] Last Admin: 01/13/18 09:22 Dose: 30 mg Famotidine (Pepcid) 20 mg SLOW IVP 2100 [facility] Last Admin: 01/12/18 20:04 Dose: 20 mg Hydralazine HCl (Apresoline) 10 mg SLOW IVP Q2H PRN PRN Reason: BP > 180 Last Admin: 01/13/18 07:47 Dose: 10 mg Piperacillin Sod/Tazobactam (Sod 2.25 gm/ Sodium Chloride) 100 mls @ 200 mls/ hr IVPB 0200,0800,1400,2000 [facility] Last Admin: 01/13/18 07:56 Dose: 100 mls Sodium Chloride (Normal Saline 0.9%) 1,000 mls @ 50 mls/hr IV .Q20H [facility] Last Admin: 01/13/18 05:04 Dose: 1,000 mls Nicardipine HCl 25 mg/ Sodium (Chloride) 260 mls @ 0 mls/hr IVPB INF [facility]; Protocol Last Admin: 01/12/18 21:50 Dose: 260 mls Potassium Chloride/Sodium Chloride (Ns 0.9% W/ 20 Meq Kcl) 1,000 mls @ 50 mls/ hr IV .Q20H [facility] Labetalol HCl (Normodyne) 20 mg SLOW IVP Q1H PRN PRN Reason: BP > 220/110 Mineral Oil/White Petrolatum (Eucerin Cream) 0 gm TOP BIDPRN PRN PRN Reason: Dry Skin Miscellaneous Medication (Pharmacy To Dose) 1 each IVPB PRN PRN PRN Reason: Pharmacy to dose Ondansetron HCl (Zofran) 4 mg IVP Q6H PRN PRN Reason: Nausea/Vomiting Sodium Biphosphate/Sodium Phosphate (Fleet Enema) 133 ml MA ONE PRN PRN Reason: Constipation Stop: 01/17/18 09:23 Sodium Chloride (Flush - Normal Saline) 10 ml IVF Q12HR [facility] Last Admin: 01/13/18 07:48 Dose: 10 ml Sodium Chloride (Flush - Normal Saline) 10 ml IVF PRN PRN PRN Reason: Saline Flush Sodium Chloride ([place] Nasal [place] 0.65%) 0 ml EA NARE QIDPRN PRN PRN Reason: Nasal Congestion
[2018-01-13] MEDS: NS 0.9% w/ 20 MEQ KCL 1,000 ML IV SCH (10:40)
--- NOTE | 2018-01-13 11:21 | PRG ---
DATE OF SERVICE: 01/13/2018 SUBJECTIVE: This morning, he remains encephalopathic. OBJECTIVE: VITAL SIGNS: Pulse 67, blood pressure is 157/92, pulse 65, respiration 25. GENERAL: No verbal communication. CHEST: No wheezing or crackles. CARDIAC: Normal S1, S2, no gallops. ABDOMEN: Soft, no masses. LABORATORY DATA: Creatinine 1.6, white count is 14,000. IMPRESSION: 1. Status post cerebrovascular accident. 2. Acute left occipital infarct. 3. Encephalopathy. 4. Hypertension. PLAN: Continue supportive care and PT. We will follow while in the ICU.
--- NOTE | 2018-01-13 14:51 | RAD ---
AP ABDOMINAL RADIOGRAPH: DATE: 01/13/18. HISTORY: Dobbhoff feeding tube placement. COMPARISON: 01/12/18. FINDINGS: There has been interval placement of a Dobbhoff feeding tube. The tip overlies the right upper quadr ant and overlies the expected location of the 1st portion of the duodenum. The bowel gas pattern is nonspecific. Degenerative changes are again seen in the spine. There is right convex curvature of th oracic spine. IMPRESSION: Interval placement of Dobbhoff feeding tube with the tip overlying the right upper quadrant and overl shauna the expected location of the 1st portion of the duodenum. POS: [facility]
--- NOTE | 2018-01-13 14:53 | CT ---
CT OF THE BRAIN WITHOUT CONTRAST: COMPARISON: 01/12/18. HISTORY: Declining mental status. Left occipital infarction. TECHNIQUE: Multiple contiguous axial images were obtained in a CT of the brain without contrast. FINDINGS: There is a stable area of encephalomalacia in the right parietal lobe. There is a stable hypodense r egion in the left occipital lobe, likely secondary to a subacute infarction. No significant change h as occurred compared to the prior examination. There is no evidence of hydrocephalus, intracranial h emorrhage, or extraaxial fluid collection. An aneurysm clip is seen in the right MCA distribution. Postsurgical changes are seen in the right calvarium. The visualized paranasal sinuses and mastoid a ir cells are well aerated. IMPRESSION: Stable exam. POS: [facility]
--- NOTE | 2018-01-13 15:07 | PDOC.GSPN ---
Surgery Progress Note: Subj - Subjective Narrative: Patient with continued decline in mental status. He does withdraw to painful stimuli of the extremities but does not express any indication of pain with deep palpation of all 4 quadrants of his abdomen. He is not tachycardic febrile or septic in appearance. I'm signing off. Please contact if condition changes or new surgical concerns arise. Surgery Progress Note: Obj - Vital signs Vital signs: Vital Signs - Most Recent Temp Pulse Resp BP Pulse Ox 98.9 F 64 18 167/85 H 96 01/13/18 12:00 01/13/18 11:27 01/12/18 17:00 01/13/18 11:27 01/13/18 12:00 Surgery Progress Note: Results - Labs Result Diagrams: 01/13/18 03:26 01/13/18 03:26 Lab results: Laboratory Results - last 24 hr 01/13/18 01/13/18 01/13/18 03:26 03:26 03:26 WBC 14.0 H RBC 4.09 L Hgb 13.0 L Hct 38.7 L MCV 94.7 MCH 31.7 H MCHC 33.4 RDW 12.3 Plt Count 218 MPV 7.4 Neutrophils % 84.3 H Lymphocytes % 8.6 L Monocytes % 6.8 Eosinophils % 0.2 Basophils % 0.1 Neutrophils # 11.8 H Lymphocytes # 1.2 Monocytes # 1.0 H Eosinophils # 0.0 Basophils # 0.0 Sodium 142 Potassium 3.2 L Chloride 106 Carbon Dioxide 23 Anion Gap 16 BUN 23 Creatinine 1.78 H Estimated GFR (MDRD) 37 Glucose 120 H Calcium 9.6 Total Bilirubin 0.7 AST 40 H ALT 19 Alkaline Phosphatase 75 Serum Total Protein 7.5 Albumin 4.3 Globulin 3.2 Albumin/Globulin Ratio 1.3 Homocysteine 12.86 Syphilis IgG/IgM Ab 01/13/18 03:26 WBC RBC Hgb Hct MCV MCH MCHC RDW Plt Count MPV Neutrophils % Lymphocytes % Monocytes % Eosinophils % Basophils % Neutrophils # Lymphocytes # Monocytes # Eosinophils # Basophils # Sodium Potassium Chloride Carbon Dioxide Anion Gap BUN Creatinine Estimated GFR (MDRD) Glucose Calcium Total Bilirubin AST ALT Alkaline Phosphatase Serum Total Protein Albumin Globulin Albumin/Globulin Ratio Homocysteine Syphilis IgG/IgM Ab Nonreactive
[2018-01-13] MEDS ORDERED: levETIRAcetam In NaCl (Iso-Os) 1,000 MG in Premix Bag 1 BAG IVPB SCH (15:37)
--- NOTE | 2018-01-13 16:11 | PRG ---
DATE OF SERVICE: 01/13/2018 SUBJECTIVE: Mr. Dinh is a pleasant 77-year-old male, who presented with the acute onset of right-sided weakness. He had a gradual/sudden decline in his neurological exam on yesterday. He continues to be obtunded and nonresponsive to any verbal or noxious stimuli. He continues to have p osturing movement. Per nurse, there has not been any seizure-type activity noted. During my evaluat ion, he had 1 episode that was brief of lasting maybe 5 seconds where he had jerking of left upper ex tremity. PHYSICAL EXAMINATION: VITAL SIGNS: Blood pressure of 171/96, pulse of 89, temperature of 98.9, respirations of 35, 99% on room air. GENERAL: Obtunded male in no apparent distress. RESPIRATORY: Clear to auscultation bilaterally. CARDIOVASCULAR: Regular rate and rhythm. NEUROLOGICAL EXAM: Mental status: The patient is obtunded. He does not respond to verbal or noxiou s stimuli. Cranial nerves: Pupils are 3 mm and reactive. Face appears symmetric. Motor exam showe d increased tone of both upper extremities. There is no response to sternal rub or supraorbital pres sure. He has decerebrate posturing on nerve root pressure in both upper extremities. He withdraws t o pain in both lower extremities. LABORATORY DATA: Labs are reviewed, which included CBC and CMP, which is significant for WBC of 14.0 , hemoglobin 13.0, hematocrit of 38.7, potassium of 3.2, BUN of 23, creatinine of 1.78, glucose of 12 0, otherwise unremarkable. IMAGING STUDIES: None. IMPRESSION: 1. Posterior-fossa stroke. 2. Decreased level of alertness, could be secondary to stroke, possible seizure. Mr. Dinh is a pleasant 77-year-old male, who presented with the right-sided weakness and he is found to have a sudden decline in his neurological exam. His CT scan yesterday did not show a ny new abnormality. He continues to be obtunded and have posturing in both upper extremities to pain ful stimuli. My concern is posterior-fossa swelling and edema. I will repeat the CT scan to reevalu ate for this finding. There was 1 brief episode of left arm jerking that I witnessed for 5 seconds, which makes me think that may be a seizure that would be contributing to some of the symptoms. I pavel l load him with Keppra of 1000 mg IV now dose followed by 500 mg b.i.d. He did receive 1 dose of man nitol yesterday without any changes in his neurological exam. I will continue to monitor his progres s and provide further recommendations as necessary. Thank you for the consultation.
[2018-01-13] MEDS: Atorvastatin Calcium 40 MG TAB PO SCH (20:13)
[2018-01-13] MEDS: Famotidine/PF 20 mg/2ml Vial SLOW IVP SCH (20:13)
[2018-01-14] MEDS: Piperacillin/Tazobactam 2.25 GM in Sodium Chloride 0.9% 100 ML IVPB SCH ×4 (01:32→21:44)
[2018-01-14] MEDS: NS 0.9% w/ 20 MEQ KCL 1,000 ML IV SCH (04:20)
[2018-01-14] MEDS: Aspirin 81 mg Enteric Coated Tablet PO SCH (08:46)
[2018-01-14] MEDS: Enoxaparin Sodium 30 MG/0.3 ML SYRINGE SC SCH (08:47)
[2018-01-14] MEDS ORDERED: Metoclopramide HCl 10 MG/2 ML VIAL IVP PRN (11:33)
[2018-01-14] MEDS ORDERED: Milk Of Magnesia 30 ML UDCUP PER TUBE PRN (11:33)
[2018-01-14] MEDS ORDERED: Diabetic Tussin 200 MG/10 ML UDCUP PER TUBE PRN (11:33)
[2018-01-14] MEDS ORDERED: Mag-Al 1200 mg/1200 mg/30 ML UDCUP PER TUBE PRN (11:33)
[2018-01-14] MEDS ORDERED: Acetaminophen 325 MG TAB PER TUBE PRN (11:33)
[2018-01-14] MEDS ORDERED: Calcium Carbonate 500 MG ChewTAB PER TUBE PRN (11:33)
--- NOTE | 2018-01-14 11:34 | PDOC.PN ---
- Subjective Encounter Start Date: 01/14/18 Encounter Start Time: 10:10 Patient seen and examined. pt's condition has not changed, had suspected seizure like activity, on cardine drip - Objective Resuscitation Status: Resuscitation Status DNR:Do Not Resuscitate MAR Reviewed: Yes Vital Signs & Weight: Vital Signs (12 hours) Temp 01/14/18 09:00 98.7 F 01/14/18 04:00 99.1 F 01/14/18 00:00 99 F Weight Admit Weight 159 lb 11.2 oz Weight 159 lb 11.2 oz Most Recent Monitor Data Heart Rate from ECG 79 NIBP 158/80 NIBP BP-Mean 106 Respiration from ECG 22 SpO2 98 I&O: 01/13/18 01/14/18 01/15/18 06:59 06:59 06:59 Intake Total 1918 2813 30 Output Total 2740 2205 555 Balance -822 608 -525 Result Diagrams: 01/13/18 03:26 01/13/18 03:26 Radiology Reviewed by me: Yes (CT brain reviewed) EKG Reviewed by me: Yes (nsr) Phys Exam - Physical Examination Constitutional: NAD HEENT: PERRLA, sclera anicteric dubhuff tube+ Neck: no JVD, supple Respiratory: no wheezing, no rales, no rhonchi Cardiovascular: RRR, no significant murmur, no rub Gastrointestinal: soft, non-tender, no distention, positive bowel sounds Musculoskeletal: no edema, pulses present unable to assess Lymphatic: no nodes Deviation from normal: unable to assess Skin: no rash, normal turgor Dx/Plan (1) CVA (cerebral vascular accident) Code(s): I63.9 - CEREBRAL INFARCTION, UNSPECIFIED Status: Acute Qualifiers: CVA mechanism: thrombosis Precerebral and cerebral artery: middle cerebral artery Laterality of affected vessel: left Qualified Code(s): I63.312 - Cerebral infarction due to thrombosis of left middle cerebral artery (2) Encephalopathy acute Code(s): G93.40 - ENCEPHALOPATHY, UNSPECIFIED Status: Acute (3) Hypertensive urgency Code(s): I16.0 - HYPERTENSIVE URGENCY Status: Acute (4) Acute kidney failure Status: Acute (5) BPH (benign prostatic hyperplasia) Code(s): N40.0 - BENIGN PROSTATIC HYPERPLASIA WITHOUT LOWER URINRY TRACT SYMP Status: Chronic (6) Bandemia Code(s): D72.825 - BANDEMIA Status: Acute (7) Cannabis abuse Code(s): F12.10 - CANNABIS ABUSE, UNCOMPLICATED Status: Chronic (8) Hypokalemia Code(s): E87.6 - HYPOKALEMIA Status: Acute (9) Dyslipidemia Code(s): E78.5 - HYPERLIPIDEMIA, UNSPECIFIED Status: Chronic (10) H/O arteriovenous malformation (AVM) Code(s): Z87.74 - PERSONAL HISTORY OF CONGENITAL MALFORM OF HEART AND CIRC SYS Status: Chronic (11) H/O: CVA (cerebrovascular accident) Code(s): Z86.73 - PRSNL HX OF TIA (TIA), AND CEREB INFRC W/O RESID DEFICITS Status: Chronic Comment: with chronic left side weakness (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 social media & mobile manager * continue empiric zosyn * continue tube feeding * restart his selected home medication via tube * repeat labs tomorrow * EEG * continue keppra * medication reviewed as below * symptomatic treatment * discussed with . Review of Systems - Review of Systems Other: unable to review due to unresponsiveness - Medications/Allergies Allergies/Adverse Reactions: Allergies Allergy/AdvReac Type Severity Reaction Status Date / Time No Known Allergies Allergy Verified 01/12/18 03:09 Medications: Current Medications Acetaminophen (Tylenol) 650 mg SC Q4H PRN PRN Reason: Headache/Fever or Mild Pain Artificial Tears (Tears Naturale) 0 drop EA EYE PRN PRN PRN Reason: Dry Eyes Aspirin (Ecotrin) 81 mg PO DAILY [facility] Last Admin: 01/14/18 08:46 Dose: 81 mg Atorvastatin Calcium (Lipitor) 80 mg PO HS [facility] Last Admin: 01/13/18 20:13 Dose: 80 mg Bisacodyl (Dulcolax) 10 mg SC DAILYPRN PRN PRN Reason: Constipation Enoxaparin Sodium (Lovenox) 30 mg SC 0900 [facility] Last Admin: 01/14/18 08:47 Dose: 30 mg Famotidine (Pepcid) 20 mg SLOW IVP 2100 [facility] Last Admin: 01/13/18 20:13 Dose: 20 mg Hydralazine HCl (Apresoline) 10 mg SLOW IVP Q2H PRN PRN Reason: BP > 180 Last Admin: 01/13/18 10:55 Dose: 10 mg Piperacillin Sod/Tazobactam (Sod 2.25 gm/ Sodium Chloride) 100 mls @ 200 mls/ hr IVPB 0200,0800,1400,2000 [facility] Last Admin: 01/14/18 08:45 Dose: 100 mls Nicardipine HCl 25 mg/ Sodium (Chloride) 260 mls @ 0 mls/hr IVPB INF [facility]; Protocol Last Admin: 01/14/18 05:20 Dose: 260 mls Potassium Chloride/Sodium Chloride (Ns 0.9% W/ 20 Meq Kcl) 1,000 mls @ 50 mls/ hr IV .Q20H [facility] Last Admin: 01/14/18 04:20 Dose: 1,000 mls Levetiracetam 500 mg/ Device 100 mls @ 200 mls/hr IVPB 0400,1600 [facility] Last Admin: 01/14/18 04:19 Dose: 100 mls Labetalol HCl (Normodyne) 20 mg SLOW IVP Q1H PRN PRN Reason: BP > 220/110 Mineral Oil/White Petrolatum (Eucerin Cream) 0 gm TOP BIDPRN PRN PRN Reason: Dry Skin Miscellaneous Medication (Pharmacy To Dose) 1 each IVPB PRN PRN PRN Reason: Pharmacy to dose Ondansetron HCl (Zofran) 4 mg IVP Q6H PRN PRN Reason: Nausea/Vomiting Sodium Biphosphate/Sodium Phosphate (Fleet Enema) 133 ml SC ONE PRN PRN Reason: Constipation Stop: 01/17/18 09:23 Sodium Chloride (Flush - Normal Saline) 10 ml IVF Q12HR [facility] Last Admin: 01/14/18 08:47 Dose: 10 ml Sodium Chloride (Flush - Normal Saline) 10 ml IVF PRN PRN PRN Reason: Saline Flush Sodium Chloride ([place] Nasal [place] 0.65%) 0 ml EA NARE QIDPRN PRN PRN Reason: Nasal Congestion
[2018-01-14] MEDS ORDERED: Bisoprolol Fumarate/HCTZ 5 mg/6.25 mg Tablet PER TUBE SCH (12:00)
[2018-01-14] MEDS ORDERED: Amlodipine 5 MG TAB PER TUBE SCH (12:00)
[2018-01-14] MEDS: hydrALAZINE 20 MG/ML VIAL SLOW IVP PRN ×2 (14:48→22:42)
--- NOTE | 2018-01-14 18:05 | PRG ---
DATE OF SERVICE: 01/14/2018 SUBJECTIVE: This morning he is less response. Pupils are pinpoint. OBJECTIVE: VITAL SIGNS: Blood pressure 170/80, temperature 98, respiration rate 18, sats are 96%. CHEST: Bilateral rhonchi. CARDIAC: Normal S1, S2, no gallops. ABDOMEN: Soft without any masses. No lab was ordered. IMPRESSION: 1. Status post posterior circulation cerebrovascular accident. 2. Vasculopathy. 3. Hypertension. PLAN: At this stage, nothing additional to do. His NG tube was inserted for nutrition and medicatio n. Continue supportive care. Long-term prognosis is poor. Family has made him DNR.
--- NOTE | 2018-01-14 18:06 | CON ---
DATE OF CONSULTATION: 01/12/2018 REFERRING PROVIDER: Vicki Wan M.D. REASON FOR CONSULTATION: Acute onset weakness, confusion, slurred speech. HISTORY OF PRESENT ILLNESS: Mr. Dinh is a pleasant 77-year-old male who has been consulted for evaluation of acute onset of weakness, confusion and slurred speech. History is obtained from the patient's medical chart as well as . reports that yesterday she had come back home from work and found the patient to be having slurred speech and weakness on the right side, which was not present before. This prompted her to bring him to the [facility] [place] [facility]. He was admitted for further workup of the stroke. He did have a CT head without contrast done, which did not show any acute intracranial abnormality. He also had a CT angiogram of the head done, which showed occlusion of the mid to distal left vertebral artery with atherosclerotic plaque in the proximal right MCA artery. He was deemed not a candidate for IV TPA and endovascular therapy. He was admitted for further evaluation. Overnight, the patient had a decline in his status that he became more drowsy and obtunded, not waking up to noxious stimuli. He is not withdrawing to any painful stimuli. PAST MEDICAL HISTORY: Significant for hypertension, hyperlipidemia, hemophilia and history of cavernous malformation post-clipping procedure. PAST SURGICAL HISTORY: Significant for AVM repair on the right parietal region , aneurysm clip on the middle cerebral artery, foot surgery. FAMILY HISTORY: Noncontributory. SOCIAL HISTORY: He drinks less than 5 drinks per day. He is a former cigarette smoker. He does not use any illicit drugs. He is a retired professor. . CURRENT MEDICATIONS: Please review MAR. ALLERGIES: No known drug allergies. REVIEW OF SYSTEMS: Unable to perform. PHYSICAL EXAMINATION: VITAL SIGNS: Blood pressure of 167/103, pulse of 56, temperature of 98.9, respirations of 14, O2 sats 100% on room air. GENERAL: Obtunded male with an apneic breathing pattern. RESPIRATORY: Clear to auscultation bilaterally. CARDIOVASCULAR: Regular rate and rhythm. NEUROLOGIC: Mental status: The patient is obtunded. He does not respond to verbal or noxious stimuli. He grimaces to pain. Cranial nerves: Pupils are 3 mm and reactive on both sides. Face appears symmetric. Motor: Showed flaccid bilateral upper and lower extremity. He has a decerebrate posture on nerve root pressure in both upper extremities. He withdraws to pain in both lower extremities. Gait and Romberg coordination could not be tested. LABORATORY DATA: Reviewed, which included CBC, CMP, urinalysis, urine drug screen, which is significant for WBC of 14.6, hemoglobin 13.7, hematocrit 39.6, platelets 219. Total cholesterol of 287, LDL of 190, HDL of 43, triglycerides of 270. Urine drug screen was positive for cannabinoids and benzodiazepine, otherwise negative. IMAGING STUDIES: CT head without contrast done earlier in the day today was reviewed, which showed hypodensity in the left cerebellar and left occipital region, which was new compared to study done on yesterday. IMPRESSION: 1. Acute posterior fossa ischemic infarct. 2. Malignant hypertension. 3. Hyperlipidemia. PLAN: Mr. Dinh is a pleasant 77-year-old male who presented with acute onset of right-sided weakness who has a decline over the past 24 hours to the point that he became obtunded and has posturing on my exam. This is concerning for cerebral edema and swelling. I have reviewed his CT head without contrast from today which showed new left cerebellar and left occipital ischemic infarct; however, this would not result in the exam findings that he is having right now. My concern is the CT scan is not showing the complete effect of the stroke. Since he has aneurysm clip, we are not able to obtain MRI brain. I will repeat CT head stat right now to see if there is any changes compared to the previous. I will give him one dose of 50 gram of mannitol dose to see if unresponsiveness improves the cerebral swelling and edema. I will continue to monitor this patient and provide further recommendations as necessary. [facility]
[2018-01-14] MEDS: Labetalol HCl 100 MG/20 ML VIAL SLOW IVP PRN (19:00)
[2018-01-14] MEDS: Atorvastatin Calcium 40 MG TAB PO SCH (21:44)
[2018-01-14] MEDS: Famotidine/PF 20 mg/2ml Vial SLOW IVP SCH (21:44)
[2018-01-15] MEDS: hydrALAZINE 20 MG/ML VIAL SLOW IVP PRN ×2 (02:01→11:09)
[2018-01-15] MEDS: Piperacillin/Tazobactam 2.25 GM in Sodium Chloride 0.9% 100 ML IVPB SCH ×3 (03:25→16:34)
[2018-01-15] MEDS: Labetalol HCl 100 MG/20 ML VIAL SLOW IVP PRN (03:52)
[2018-01-15 04:48] LABS: #Lymphocytes 0.9 thou/uL (1.20-3.40); #Monocytes 0.8 thou/uL (0.11-0.59); #Neutrophils 10.8 thou/uL (1.40-6.50); %Basophils 0.2 % (0.0-1.0); %Eosinophils 0.3 % (0.0-10.0); %Lymphocytes 7.5 % (21.0-51.0); %Monocytes 6.4 % (0.0-10.0); %Neutrophils 85.6 % (42.0-75.0); Mean Corpuscular HGB CONC 33.2 g/dL (32.0-36.0); Mean Corpuscular Hemoglobin 32.2 pg (27.0-31.0); Mean Corpuscular Volume 97.2 fL (78.0-98.0); Mean Platelet Volume 6.7 fL (7.4-10.4); Platelet Count 227 thou/uL (130-400); RBC Distribution Width 12.4 % (11.5-14.5); Red Blood Cell (RBC) Count 4.02 mill/uL (4.70-6.10); White Blood Cell (WBC) Count 12.6 thou/uL (4.8-10.8)
[2018-01-15 05:04] LABS: ALT (SGPT) 58 U/L (8-55); AST (SGOT) 92 U/L (5-34); Albumin 3.9 g/dL (3.4-4.8); Alkaline Phosphatase 65 U/L (40-150); Anion Gap 16 mmol/L (10-20); BUN (Urea Nitrogen) 34 mg/dL (8.4-25.7); Bilirubin, Total 0.4 mg/dL (0.2-1.2); Calc. Creatinine Clearance 33 mL/min (70-130); Calcium 9.4 mg/dL (7.8-10.44); Carbon Dioxide 21 mmol/L (23-31); Chloride 117 mmol/L (98-107); Estimated GFR-MDRD 34; Globulin 3.1 g/dL (2.4-3.5); Glucose 165 mg/dL (83-110); Potassium 3.3 mmol/L (3.5-5.1); Sodium 151 mmol/L (136-145)
[2018-01-15] MEDS ORDERED: 1/2 NS w/KCL 20 mEq 1,000 ML IV SCH (06:45)
[2018-01-15 07:08] LABS: Magnesium 2.5 mg/dL (1.6-2.6); Phosphorus 2.7 mg/dL (2.3-4.7)
--- NOTE | 2018-01-15 07:29 | RAD ---
AP VIEW OF THE CHEST: INDICATION: Increased temperatures to 101.8. COMPARISON: Prior acute abdominal series dated 01/12/18. IMPRESSION: There is worsening opacity within the right lung base suspicious for worsening pneumonia. No pleural effusion or pneumothorax is evident. Cardiomegaly persists. Chronic osseous changes are stable. POS: [facility]
[2018-01-15] MEDS ORDERED: Doxazosin Mesylate 4 MG TAB PER TUBE SCH (09:00)
[2018-01-15] MEDS ORDERED: Saccharomyces boulardii 250 MG CAP PER TUBE SCH (09:00)
[2018-01-15] MEDS ORDERED: Polyethylene Glycol 3350 17 GM Packet PER TUBE SCH (09:00)
[2018-01-15] MEDS ORDERED: Bisoprolol Fumarate/HCTZ 5 mg/6.25 mg Tablet PER TUBE SCH (09:00)
[2018-01-15] MEDS ORDERED: Aspirin 325 MG TAB PER TUBE SCH (09:00)
[2018-01-15] MEDS ORDERED: Finasteride 5 MG TAB PO SCH (09:00)
[2018-01-15] MEDS ORDERED: Amlodipine 5 MG TAB PER TUBE SCH (09:00)
--- NOTE | 2018-01-15 09:16 | PRG ---
DATE OF SERVICE: 01/15/2018 This morning he remains unresponsive. He has a feeding tube that was placed. A chest x-ray shows ri ght basilar atelectatic changes. Sodium is 151, creatinine 1.93, BUN 34. He was made a DNR. PHYSICAL EXAMINATION: VITAL SIGNS: Blood pressure is 119/114, sats 100% on room air, respiration 28, temperature 97, pulse 62. CHEST: Decreased breath sounds without any wheezing. CARDIAC: Normal S1-S2. No gallops. ABDOMEN: Soft, no masses. IMPRESSION: 1. Status post cerebrovascular accident. 2. Presumed seizure activity. 3. Aspiration. 4. Encephalopathy. PLAN: Continue present comfort care. Pulmonary will follow at a distance. Please call if needed.
[2018-01-15] MEDS: Enoxaparin Sodium 30 MG/0.3 ML SYRINGE SC SCH (09:51)
--- NOTE | 2018-01-15 10:12 | PDOC.PN ---
- Subjective Encounter Start Date: 01/15/18 Encounter Start Time: 07:30 pt's condition is not improving, he had fever last night, he is unresponsive - Objective Resuscitation Status: Resuscitation Status DNR:Do Not Resuscitate MAR Reviewed: Yes Vital Signs & Weight: Vital Signs (12 hours) Temp Pulse Resp BP BP Pulse Ox 01/15/18 09:53 62 01/15/18 07:57 97.3 F L 62 20 191/114 H 100 01/15/18 06:32 98.4 F 01/15/18 03:56 101.8 F H 70 16 180/98 H 93 L 01/15/18 03:52 74 180/98 H 01/15/18 02:01 67 01/14/18 23:38 98.3 F 55 L 20 185/85 H 94 L 01/14/18 22:42 63 182/97 H Weight Admit Weight 159 lb 11.2 oz Weight 159 lb 11.2 oz Most Recent Monitor Data Heart Rate from ECG 63 NIBP 151/90 NIBP BP-Mean 110 Respiration from ECG 17 SpO2 100 I&O: 01/14/18 01/15/18 01/16/18 06:59 06:59 06:59 Intake Total 2813 1669 Output Total 2205 1510 Balance 608 159 Result Diagrams: 01/15/18 04:31 01/15/18 04:31 Radiology Reviewed by me: Yes (chest xray reviewed) EKG Reviewed by me: Yes (nsr) Phys Exam - Physical Examination Constitutional: NAD HEENT: PERRLA, sclera anicteric dubhuff tube+ Neck: no JVD, supple coarse sound bilateral Cardiovascular: RRR, no significant murmur, no rub Gastrointestinal: soft, no distention, positive bowel sounds Musculoskeletal: no edema, pulses present scd+ unable to assess Lymphatic: no nodes Deviation from normal: unable to assess Skin: no rash, normal turgor Dx/Plan (1) CVA (cerebral vascular accident) Code(s): I63.9 - CEREBRAL INFARCTION, UNSPECIFIED Status: Acute Qualifiers: CVA mechanism: thrombosis Precerebral and cerebral artery: middle cerebral artery Laterality of affected vessel: left Qualified Code(s): I63.312 - Cerebral infarction due to thrombosis of left middle cerebral artery (2) Encephalopathy acute Code(s): G93.40 - ENCEPHALOPATHY, UNSPECIFIED Status: Acute (3) Hypertensive urgency Code(s): I16.0 - HYPERTENSIVE URGENCY Status: Acute (4) Acute kidney failure Status: Acute (5) BPH (benign prostatic hyperplasia) Code(s): N40.0 - BENIGN PROSTATIC HYPERPLASIA WITHOUT LOWER URINRY TRACT SYMP Status: Chronic (6) Bandemia Code(s): D72.825 - BANDEMIA Status: Acute (7) Cannabis abuse Code(s): F12.10 - CANNABIS ABUSE, UNCOMPLICATED Status: Chronic (8) Hypokalemia Code(s): E87.6 - HYPOKALEMIA Status: Acute (9) Dyslipidemia Code(s): E78.5 - HYPERLIPIDEMIA, UNSPECIFIED Status: Chronic (10) H/O arteriovenous malformation (AVM) Code(s): Z87.74 - PERSONAL HISTORY OF CONGENITAL MALFORM OF HEART AND CIRC SYS Status: Chronic (11) H/O: CVA (cerebrovascular accident) Code(s): Z86.73 - PRSNL HX OF TIA (TIA), AND CEREB INFRC W/O RESID DEFICITS Status: Chronic Comment: with chronic left side weakness (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 * change 1/2 ns with kcl at 75 ml per hour * increase free water via tube feeding Review of Systems - Review of Systems Other: unable to review with pt due to encephalopathy - Medications/Allergies Allergies/Adverse Reactions: Allergies Allergy/AdvReac Type Severity Reaction Status Date / Time No Known Allergies Allergy Verified 01/12/18 03:09 Medications: Current Medications Acetaminophen (Tylenol) [address] Q4H PRN PRN Reason: Headache/Fever or Mild Pain Acetaminophen (Tylenol) 650 mg PER TUBE Q4H PRN PRN Reason: Headache/Fever or Mild Pain Last Admin: 01/15/18 04:19 Dose: 650 mg Al Hydroxide/Mg Hydroxide (Maalox) 15 ml PER TUBE Q4H PRN PRN Reason: Heartburn or Indigestion Albuterol/Ipratropium (Duoneb) 3 ml NEB Q6H PRN PRN Reason: SOB &/or Wheezing Amlodipine Besylate (Norvasc) 5 mg PER TUBE DAILY [facility] Last Admin: 01/15/18 09:53 Dose: 5 mg Artificial Tears (Tears Naturale) 0 drop EA EYE PRN PRN PRN Reason: Dry Eyes Aspirin (Aspirin) 325 mg PER TUBE DAILY [facility] Last Admin: 01/15/18 09:53 Dose: 325 mg Atorvastatin Calcium (Lipitor) 80 mg PO HS [facility] Last Admin: 01/14/18 21:44 Dose: 80 mg Bisacodyl (Dulcolax) [address] DAILYPRN PRN PRN Reason: Constipation Bisoprolol Fumarate/HCTZ (Ziac 5-6.25) 1 tab PER TUBE DAILY [facility] Last Admin: 01/15/18 09:53 Dose: 1 tab Calcium Carbonate (Tums) 1,000 mg PER TUBE Q4H PRN PRN Reason: Heartburn or Indigestion Doxazosin Mesylate (Cardura) 4 mg PER TUBE DAILY [facility] Last Admin: 01/15/18 09:53 Dose: 4 mg Enoxaparin Sodium (Lovenox) 30 mg SC 0900 [facility] Last Admin: 01/15/18 09:51 Dose: 30 mg Famotidine (Pepcid) 20 mg SLOW IVP 2100 [facility] Last Admin: 01/14/18 21:44 Dose: 20 mg Finasteride (Proscar) 5 mg PO DAILY [facility] Last Admin: 01/15/18 09:53 Dose: 5 mg Guaifenesin (Robitussin Sf) 200 mg PER TUBE Q4H PRN PRN Reason: Cough Hydralazine HCl (Apresoline) 10 mg SLOW IVP Q2H PRN PRN Reason: BP > 180 Last Admin: 01/15/18 02:01 Dose: 10 mg Piperacillin Sod/Tazobactam (Sod 2.25 gm/ Sodium Chloride) 100 mls @ 200 mls/ hr IVPB 0200,0800,1400,2000 [facility] Last Admin: 01/15/18 09:39 Dose: 100 mls Levetiracetam 500 mg/ Device 100 mls @ 200 mls/hr IVPB 0400,1600 [facility] Last Admin: 01/15/18 03:25 Dose: 100 mls Potassium Chloride/Sodium Chloride (1/2 Ns W/Kcl 20 Meq) 1,000 mls @ 75 mls/hr IV .[id number] [facility] Last Admin: 01/15/18 09:38 Dose: 1,000 mls Labetalol HCl (Normodyne) 20 mg SLOW IVP Q1H PRN PRN Reason: BP > 220/110 Last Admin: 01/15/18 03:52 Dose: 20 mg Magnesium Hydroxide (Milk Of Magnesium) 30 ml PER TUBE DAILYPRN PRN PRN Reason: Constipation Metoclopramide HCl (Reglan) 5 mg IVP Q4H PRN PRN Reason: Nausea Mineral Oil/White Petrolatum (Eucerin Cream) 0 gm TOP BIDPRN PRN PRN Reason: Dry Skin Miscellaneous Medication (Pharmacy To Dose) 1 each IVPB PRN PRN PRN Reason: Pharmacy to dose Ondansetron HCl (Zofran) 4 mg IVP Q6H PRN PRN Reason: Nausea/Vomiting Polyethylene Glycol (Miralax) 17 gm PER TUBE DAILY [facility] Last Admin: 01/15/18 09:51 Dose: 17 gm Saccharomyces Boulardii (Florastor) 250 mg PER TUBE DAILY [facility] Last Admin: 01/15/18 09:53 Dose: 250 mg Sodium Biphosphate/Sodium Phosphate (Fleet Enema) [address] ONE PRN PRN Reason: Constipation Stop: 01/17/18 09:23 Sodium Chloride (Flush - Normal Saline) 10 ml IVF Q12HR [facility] Last Admin: 01/15/18 09:54 Dose: 10 ml Sodium Chloride (Flush - Normal Saline) 10 ml IVF PRN PRN PRN Reason: Saline Flush Sodium Chloride ([place] Nasal [place] 0.65%) 0 ml EA NARE QIDPRN PRN PRN Reason: Nasal Congestion
[2018-01-15] MEDS: NS 0.9% w/ 20 MEQ KCL 1,000 ML IV SCH (11:26)
[2018-01-15 12:08] VITALS: BP 170/76
[2018-01-15 13:07] VITALS: TEMP 99.3
[2018-01-15] MEDS ORDERED: Lorazepam 2 MG/ML VIAL ONE (15:12)
[2018-01-15] MEDS ORDERED: Lorazepam 2 MG/ML VIAL SLOW IVP SCH (15:45)
--- NOTE | 2018-01-15 16:14 | PRG ---
DATE OF SERVICE: 01/14/2018 SUBJECTIVE: Mr. Dinh is a pleasant 77-year-old male who presented with the decreased level of responsiveness. He was found to have acute to subacute ischemic infarct involving the left cerebellar and left occipital region. He continues to be obtunded and not responsive to any verbal or noxious stimuli. There has not been any seizure type activity noted per nurse. PHYSICAL EXAMINATION: VITAL SIGNS: Blood pressure of 149/92, pulse of 74, respirations of 20, O2 sats of 100%. GENERAL: Obtunded white male in no apparent distress. RESPIRATORY: Clear to auscultation bilaterally. CARDIOVASCULAR: Regular rate and rhythm. NEUROLOGIC: Mental status: The patient is obtunded. He is not responsive to verbal or noxious stimuli. He is able to open his eyes spontaneously, which was not present before; however, he does not follow any commands. Cranial nerves: Pupils are 3 mm and reactive. Visual field exam could not be performed. Face appears symmetric. Motor exam showed increased tone of both upper and lower extremities. He has decerebrate posturing to nail bed pressure in both upper extremities. He withdraws to pain in both lower extremities. IMPRESSION AND PLAN: 1. Acute to subacute ischemic infarct involving the left posterior fossa. 2. Possible seizure. 3. Decreased level of responsiveness, due to #1 or 2. Mr. Dinh is a pleasant 77-year-old male who presented with after having worsening weakness and lethargicness and since being admitted, he has a gradual decline in his neurological status. At this time, I would recommend continuing on Keppra 500 mg b.i.d. I will obtain EEG on tomorrow morning. I will also obtain a CT scan of the head without contrast in the morning. I have discussed with the patient's , son and brother and explained the current treatment plan. I will follow the results of CAT scan and EEG and provide further recommendations at that time. ALLEN
--- NOTE | 2018-01-15 16:19 | DS ---
SUMMARY: Please see my discharge summary dictated earlier today for more detailed information. This patient was planned for comfort care and plan for discharge to inpatient hospice facility, but jame truong's condition deteriorated rapidly and the patient was actively dying in hospital and that is why we consulted transfer and the patient at 1537. CAUSE OF : Acute left middle cerebral artery cerebrovascular accident, acute encephalopathy, ac [place] kidney failure, hypertensive emergency, sepsis with acute organ dysfunction, aspiration pneumonit is. CONTRIBUTING DIAGNOSES: Hypertension, hemophilia B, dyslipidemia. HOSPITAL COURSE: Please see my discharge summary dictated earlier.
--- NOTE | 2018-01-15 16:56 | PRG ---
DATE OF SERVICE: 01/15/2018 SUBJECTIVE: Mr. Dinh continues to be obtunded and not responsive to any verbal or noxious stimuli. During my evaluation today, it was noted to have increasing difficulty with respiration. His heart rate was also dropped down to 30s. He was also having difficulty to clear out of secretions. PHYSICAL EXAMINATION: VITAL SIGNS: Blood pressure of 170/76, pulse of 58, temperature of 99.3, respirations are 20, and O2 sats of 98% on room air. GENERAL: Obtunded male in mild to moderate respiratory discomfort. RESPIRATORY: Clear to auscultation bilaterally. CARDIOVASCULAR: Regular rate and rhythm. NEUROLOGIC: Mental status: The patient is obtunded. He is not responsive to any verbal or noxious stimuli. His speech and language unable to evaluate. Cranial nerves: Pupils are 3 mm and reactive. Face appears symmetric. Motor exam showed increased tone of both upper and lower extremities. He has a decerebrate posturing to nerve root pressure in both upper extremities. LABORATORY DATA: Reviewed, which included CBC, CMP, which is significant for WBC of 12.6, hemoglobin of 13.1, hematocrit of 39.1. Sodium of 151, potassium of 3.3, BUN of 34, creatinine 1.93, AST of 92, ALT of 58, otherwise negative. IMAGING STUDIES: CT head without contrast was reviewed. Official report by Radiology is fair, radiology is still pending. I have reviewed the scan myself , which did show evolution of the left posterior fossa and ischemic infarct. There was a cerebellar region as well as there is a new hypodensity in the right posterior parietal region suggestive to subacute ischemic infarct. IMPRESION: Posterior fossa ischemic infarct involving the left side of the brainstem and right posterior parietal region. I also reviewed his EEG, which did show [id number] discharge is involving the right parietal region. I have discussed with and explained the findings of the CT scan of the head and EEG. reported that he has conveyed to her that he does not want to have any aggressive measures including no intubation or a chemical therapy as well as no PEG tube that would prolong his life. At this time, I would recommend consulting palliative care and hospice care team to discuss further treatment option plan. I will increase the dose of the Keppra 1000 mg b.i.d., I have given 500 mg of Keppra one time dose. Continue supportive care. MTDD
--- NOTE | 2018-01-15 17:13 | CT ---
CT BRAIN WITHOUT CONTRAST: INDICATIONS: Followup stroke. COMPARISON: Prior exam dated 01/13/2018. FINDINGS: The chronic area of encephalomalacia involving the right parietal lobe is stable. The large left cer ebellar hemisphere infarct is relatively stable in territory affected. There is slightly worsening v asogenic edema involving the left cerebellar hemisphere. The basilar cisterns remain patent. Chroni c small vessel white matter ischemic change is similar appearing. No intracranial hemorrhage or hydr ocephalus is noted. Generalized cerebral atrophy is similar appearing. Scattered vascular calcifica tion of the intracranial arteries is similar appearing. The mastoid air cells are clear. The nas[place] stric tube is in place. The skull is intact. There is stable post surgical changes involving the ri ght frontal skull. IMPRESSION: 1. Mild increased vasogenic edema involving the left occipital lobe, in the region of the left occip ital hemisphere infarct. The basilar cisterns remain patent. No hydrocephalus or midline shift is n oted. 2. Stable chronic infarct involving the right parietal region. 3. Stable chronic small vessel white matter ischemic change. 4. Other stable chronic findings, as above. POS: BERNICE
--- NOTE | 2018-01-15 19:06 | DIS ---
DATE OF ADMISSION: 01/11/2018 DATE OF DISCHARGE: 01/15/2018 PRIMARY CARE PHYSICIAN: Jasmin Blackburn M.D. DISCHARGE DISPOSITION: Inpatient hospice facility for comfort care. PRIMARY DISCHARGE DIAGNOSES: 1. Acute left middle cerebral artery cerebrovascular accident. 2. Acute encephalopathy. 3. Acute kidney failure. 4. Aspiration pneumonia. 5. Hypertensive urgency. 6. Hypernatremia. 7. Hypokalemia. 8. Abnormal liver function tests. 9. Sepsis with acute organ dysfunction. SECONDARY DISCHARGE DIAGNOSES: Obesity with body mass index 30, hypertension, hemophilia B, history of cerebrovascular accident in past, history of AV malformation in the past, dyslipidemia, Cannabis a buse, benign enlargement of prostate. PRIMARY PROCEDURE/OPERATION: None. RADIOLOGICAL INVESTIGATION: CT brain, CT [place] with angiography, CT brain several times s ubsequently performed in the hospital. Abdomen x-ray, echocardiography. SIGNIFICANT LABORATORIES: WBC 12.6, hemoglobin 13.0, platelet 227. INR 1.1. Sodium 151, potassium 3.3, BUN 34, creatinine 1.93, calcium 9.4, AST 92, ALT 58, alkaline phosphatase 65, albumin 3.9. Cecy ocysteine 12.86, LDL 190. Urinalysis unremarkable. Urine drug screen positive for cannabinoid. Syp hilis negative. Urine culture negative. DISCHARGE MEDICATIONS: The patient will be discharged to inpatient hospice facility and the comfort care medicine will defer to hospice team. CONTRAINDICATIONS: None as patient is discharged to inpatient hospice facility for comfort care. CODE STATUS: DNR. INPATIENT CONSULTANTS: Dr. Greer was following while in hospital. Dr. Marianne Tejada is consulted while [facility]. Dr. Galeano was consulted while in hospital. TEST RESULTS PENDING ON DISCHARGE: None. ALLERGIES: No known drug allergy. DISCHARGE PLAN: Post hospital, the patient is discharged to inpatient hospice facility where patient will follow up with hospice team. HOSPITAL COURSE: A 77-year-old male who was admitted by Dr. Miller on 01/12/2018. Please see his H&P for further detail. The patient was found on the floor by around 4:00 p.m. on the day before a dmission. It is unclear how long the patient was on the floor. Onset of symptoms was not known. Alireza lantigua's called paramedics and the patient was taken to the emergency room. Patient was found wi th a dense right upper and lower extremity weakness. He also had left-sided weakness from previous s troke. 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 The patient's condition dete riorated overnight. The patient also had some air under a right diaphragm and that is why we consulted Dr. Galeano, but i t was not related with upper abdominal organ perforation, but it was related with a . On that day, the patient had a code green because of deterioration in his condition. We did a CT bra in and subsequently we transferred him to ICU and we treated him with Cardene drip for very high bloo d pressure. Neurology was consulted and evaluated this patient. Pulmonary group also evaluated this patient. Patient was require close monitoring in CCU. This patient also started having seizure and that is why Keppra was started. EEG was obtained. This patient has no improvement in his condition over the last several days. The patient was made DNR by family member. At this point, the no t thinking any aggressive therapy on him and they are considering hospice and comfort care. Hospice team will evaluate this patient and if this patient is qualifying for inpatient hospice care, then we will consider discharging him to Hospice facility. I have seen and examined this patient. Plan of care discussed with the family member. Paper work fo r discharge done.
--- NOTE | 2018-01-17 15:29 | EEG ---
Referring Physician: DR. ROMY BRIGGS EEG # [id number] TEST TYPE: ROUTINE [facility] INPATIENT DATE OF EEG BEING DONE: 01/15/18 REASON FOR EEG: ALTERED MENTAL STATUS, DECREASED LEVEL OF RESPONSIVENESS, QUESTIONABLE SEIZURE EEG DESCRIPTION: This is a 21 channel digital EEG recording. Electrodes are placed using the international 10-20 electrode placement system. The background rhythm is predominately 5-6 hertz, low to medium amplitude Theta rhythm. There is mild slowing in the right cerebral hemisphere. There are also sharp transients noted in the right posterior cerebral hemisphere. HYPERVENTILATION: Could not be done. PHOTIC STIMULATION: Showed no effect. There are no electrographic seizures noted. IMPRESSION: THIS IS AN ABNORMAL EEG. IT SHOWS MILD TO MODERATE SLOWING DIFFUSELY ALONG WITH SHARP TRANSIENTS AND MORE PRONOUNCED SLOWING IN THE RIGHT CEREBRAL HEMISPHERE. HOWEVER, THERE ARE NO ELECTROGRAPHIC SEIZURES NOTED. THIS CAN BE SEEN IN PATIENTS WITH COMPLEX PARTIAL SEIZURE ORIGINATING FROM THE RIGHT CEREBRAL HEMISPHERE. HOWEVER PATIENT IS NOT IN STATUS EPILEPTICUS. Last Scourer: [employer] Specialist: EEG.PRITI VILLA
== END 2018-01-15 18:21 | disposition expired | DRG 64 ==
LOC: ERS 17:14 → 2SE 20:00 → CCU 01-12 10:06 → 2SE 01-14 15:46
PROVIDERS: ADMIT Internal Medicine Infectious Disease; ATTEND Internal Medicine Infectious Disease
PROC: 4A00X4Z Measurement of Central Nervous Electrical Activity, External Approach (ICD-10-PCS; principal; 2018-01-15)
DX: I63.312 Cerebral infarction due to thrombosis of left middle cerebral artery (principal); A41.9 Sepsis, unspecified organism; J69.0 Pneumonitis due to inhalation of food and vomit; D67 Hereditary factor IX deficiency; R65.20 Severe sepsis without septic shock; G93.6 Cerebral edema; G93.49 Other encephalopathy; N17.9 Acute kidney failure, unspecified; I16.1 Hypertensive emergency; E87.0 Hyperosmolality and hypernatremia; G81.91 Hemiplegia, unspecified affecting right dominant side; E78.5 Hyperlipidemia, unspecified; E87.6 Hypokalemia; R56.9 Unspecified convulsions; E66.9 Obesity, unspecified; Z68.30 Body mass index [BMI] 30.0-30.9, adult; F12.10 Cannabis abuse, uncomplicated; N40.0 Benign prostatic hyperplasia without lower urinary tract symptoms; Z66 Do not resuscitate; D72.825 Bandemia; I10 Essential (primary) hypertension; Z51.5 Encounter for palliative care; R47.81 Slurred speech; Z87.891 Personal history of nicotine dependence; E78.00 Pure hypercholesterolemia, unspecified; E78.1 Pure hyperglyceridemia; R29.702 NIHSS score 2; R40.2412 Glasgow coma scale score 13-15, at arrival to emergency department
CPT/HCPCS: 36415; 36416; 70450; 70496; 70498; 71045; 74018; 74022; 80053; 80061; 80306; 80307; 81003; 81015; 82330; 82553; 82803; 83090; 83690; 83735; 84100; 84484; 85025; 85610; 85730; 86780; 87040; 87086; 93005; 93306; 94644; 95816; 95819; 96360; 96361; 96374; A4216; G8978-GP-CN; G8979-GP-CL; G8987-GO-CN; G8988-GO-CM; J0360; J1650; J1815; J1953; J2060; J2150; J2405; J2543; J3480; J7050; J7611; S0028